=== PATIENT | female | born 1995 | race Caucasian/White ===

== ENCOUNTER 2019-11-26 14:19 | Emergency (ER) | payer MEDICAID ==
[~2019-11-26] VITALS: Ht 160 cm; Wt 61.8 kg
[~2019-11-26 14:19] MED LIST: BACTROBAN 22GM22 GM NAS; CEPHALEXIN500 M1 PO; DOXYCYCLINE 10100 MG PO; MOTRIN 200200 MG/TAB PO; NO HOME MEDICATIONS; NORCO 325 MG-51 TAB PO; PERCOCET 325 MG1 TA2 PO; PHENERGAN 25 TA25 MG PO; SEPTRA DS 8001 TAB PO; TYLENOL 500MG500 MG PO; ZOVIRAX400 MG PO
[2019-11-26 14:24] VITALS: BP 106/71; PULSE 79; TEMP 98.5
[2019-11-26 16:12] LABS: BASO % 0.3 % (0.0-2.0); EOS # 0.1 (0.0-0.7); EOS % 0.8 % (0-4.0); GRAN # 5.8 (1.4-6.5); GRAN % 66.9 % (42.2-75.2); HEMOGLOBIN 10.5 g/dl (12.5-16.0); LYMPH # 2.1 (1.2-3.4); LYMPH % 23.5 % (20.0-51.0); MEAN CELL VOLUME 94 fl (80.0-100.0); MEAN CORPUSCULAR HEMOGLOBIN 31 pg (27.0-31.0); MEAN CORPUSCULAR HGB CONC 33 g/dl (33.0-37.0); MEAN PLATELET VOLUME 9.3 fl (7.4-10.4); MONO # 0.7 (0.1-0.6); MONO % 7.6 % (1.7-9.3); PLATELET COUNT 274 K/mm3 (130-400); RED BLOOD COUNT 3.38 M/mm3 (4.10-5.30); REDCELL DISTRIBUTION WIDTH-CV 14.4 % (11.5-14.5)
[2019-11-26 16:13] LABS: HEMATOCRIT 31.7 % (37.0-47.0)
[2019-11-26 16:34] LABS: ALBUMIN 3.4 gm/dL (3.5-5.0); BILIRUBIN,TOTAL 0.3 mg/dL (0.0-1.0); CALCIUM 8.7 mg/dL (8.4-10.2); CREATININE, serum 0.55 (0.52-1.25); POTASSIUM 3.8 mmol/L (3.4-5.0); TOTAL PROTEIN 6.8 gm/dL (6.4-8.2)
== END 2019-11-26 17:17 | disposition left against medical advice (07) ==
LOC: COL.ER 14:19
PROVIDERS: Nurse Practitioner Primary Care
DX: R10.2 Pelvic and perineal pain (principal)

== ENCOUNTER 2020-03-11 14:00 | Outpatient (CLI) | payer MEDICAID ==
[~2020-03-11] VITALS: Ht 160 cm; Wt 71.4 kg
[2020-03-11 13:45] VITALS: BP 117/76; PULSE 90; TEMP 97.8
--- NOTE | 2020-03-11 13:50 | NUR ---
PATIENT HERE TO LR 3 FOR CHECK. PATIENT CHANGED INTO GOWN, ON EFM, ASSESMENT COMPLETE, PATIENT COMPLAINS OF CONTRACTIONS SINCE 1130 AM. PATIENT DENIES LEAKING OF FLUID, AND BLEEEDING. SVE /3. DR HINSON CALLED. WATER PROVIDED TO PATIENT. MOTHER WITH PATIENT
[2020-03-11] MEDS ORDERED: PROZAC 20MG20 MG PO (14:06)
[2020-03-11 14:30] VITALS: BP 117/76; PULSE 86
[2020-03-11 14:56] LABS: TRICYCLIC ANTIDEPRESS URINE NEGATIVE
[2020-03-11 15:00] VITALS: BP 112/69; PULSE 81
[2020-03-11 15:30] VITALS: BP 108/73; PULSE 80
[2020-03-11 16:00] VITALS: BP 103/64; PULSE 79
== END 2020-03-11 16:05 | disposition home or self-care (01) ==
LOC: LDRO 14:00
PROVIDERS: Obstetrics & Gynecology
DX: O62.9 Abnormality of forces of labor, unspecified (principal); Z3A.35 35 weeks gestation of pregnancy
CPT/HCPCS: J2405; J7120

== ENCOUNTER 2020-03-12 13:33 | Outpatient (CLI) | payer MEDICAID ==
[~2020-03-12] VITALS: Ht 160 cm; Wt 71.4 kg
[2020-03-12 12:24] VITALS: BP 114/61; PULSE 87; TEMP 97.5
[~2020-03-12 13:33] MED LIST changes: +PROZAC 20MG20 MG PO
--- NOTE | 2020-03-12 13:40 | NUR ---
JODY /-3PATIENT HERE WITH COMPLAINTS OF CONTRACTIONS. PATIENT DENIES LEAKING OF FLUID OR BLEEDING. PATIENT STATES SHE STAYED IN A HOTEL LAST NIGHT TO MAKE SURE SHE WAS NOT IN LABOR SINCE HER HOUSE IS OVER AN HOUR AWAY. PATIENT HAS TRIED BENADRYL, TYLENOL, WARM BATH. PATIENTS BOYFRIEND PRESENT. PATIENT ON EFM. VITALS OBTAINED. ASSESMENT COMPLETE
[2020-03-12 14:00] VITALS: BP 114/61; PULSE 87; TEMP 97.5
[2020-03-12 14:30] VITALS: BP 109/70; PULSE 80
[2020-03-12 14:50] VITALS: BP 107/63; PULSE 76
== END 2020-03-12 14:55 | disposition home or self-care (01) ==
LOC: LDRO 13:33 → LDR 13:52 → LDRO 14:55
DX: O62.9 Abnormality of forces of labor, unspecified (principal); Z3A.35 35 weeks gestation of pregnancy
CPT/HCPCS: OP

== ENCOUNTER 2020-04-01 10:04 | Inpatient (IN) | payer MEDICAID ==
[~2020-04-01] VITALS: Ht 160 cm; Wt 73.6 kg
[2020-04-01] VITALS (34 sets, daily range): BP systolic 88–126; BP diastolic 50–81; PULSE 73–93; TEMP 98–98.7
--- NOTE | 2020-04-01 12:35 | NUR ---
Patient arrives ambulatory with spouse for scheduled induction of labor. Patient denies contractions, ROM or vaginal bleeding. Reports normal movement. Patient changes into gown, EFM explained and placed. VSS. Reviewed plan of care for Pitocin induction, patient agrees and denies questions. CC UA obtained per history of drug use, patient notified that UDS being sent per protocol and agrees. 1245- IV started in LFA, labs obtained and LR infusing per protocol. Assessment completed. Consents explained and signed. Patient denies questions. Dr. Hernandez on unit, reviews FHR strip and contraction pattern. Orders to being Pitocin induction. 1305- Pitocin administration reviewed, patient denies questions and agrees. Pitocin started at 2 mU per protocol and order.
[2020-04-01 13:24] LABS: BASO % 0.3 % (0.0-2.0); EOS # 0.1 (0.0-0.7); EOS % 0.8 % (0-4.0); GRAN # 7.4 (1.4-6.5); GRAN % 66.2 % (42.2-75.2); HEMATOCRIT 33.2 % (37.0-47.0); HEMOGLOBIN 11.1 g/dl (12.5-16.0); LYMPH # 2.5 (1.2-3.4); LYMPH % 22.4 % (20.0-51.0); MEAN CELL VOLUME 92 fl (80.0-100.0); MEAN CORPUSCULAR HEMOGLOBIN 31 pg (27.0-31.0); MEAN CORPUSCULAR HGB CONC 33 g/dl (33.0-37.0); MONO % 8.9 % (1.7-9.3); PLATELET COUNT 343 K/mm3 (130-400); REDCELL DISTRIBUTION WIDTH-CV 13.2 % (11.5-14.5)
--- NOTE | 2020-04-01 13:32 | NUR ---
Patient consents to COVID19 test per protocol. Swab collected by Lynette Garcia RN and sent to lab.
[2020-04-01 13:38] LABS: TRICYCLIC ANTIDEPRESS URINE NEGATIVE
--- NOTE | 2020-04-01 16:55 | NUR ---
Patient encouraged to stand at bedside or get on birthing ball. Patient assisted to stand at bedside.
--- NOTE | 2020-04-01 20:20 | NUR ---
Dr Hernandez into room reviews plan of care,invites aand answers questions. SVE with AROM, clear fluid.
--- NOTE | 2020-04-01 21:50 | NUR ---
Jose E FREEZER TUNNEL OPERATOR into room for epidural placement. Pt moves to sit at edge of bed. see anesthesia record.
--- NOTE | 2020-04-01 22:15 | NUR ---
Epidural placement complete. Pt to L wedge.
[2020-04-02] VITALS (10 sets, daily range): BP systolic 99–1107; BP diastolic 52–76; PULSE 71–96; TEMP 97.7–98.2
--- NOTE | 2020-04-02 00:45 | NUR ---
Difficulty maintaining FHR tracing, to bedside.SVE as noted. 0047 Dr Hernandez called to come for delivery, NSY notified. 0102 Dr Hernandez into room, pt prepped for delivery. 0111 female , through nuchal chord x1, by Dr Hernandez.
--- NOTE | 2020-04-02 01:15 | NUR ---
Placenta delivers sppont and intact. Pitocin gtt to bolus rate. 0118 Fundal massage for increased flow, small clot expressed, lochia decreases. Perineal repair continues. 0130 Perineal repair complete, fundal massge expresses several small clots and one golfball sized clot. Pericare completed, ice pack to perineum, bed back together.
--- NOTE | 2020-04-02 02:30 | NUR ---
BP cuff on floor. Pt states "it was bugging me, so I took it off"
--- NOTE | 2020-04-02 04:00 | NUR ---
IV to INT, up to bathroom with steady gait. Voids large amount, performs own pericare. clean gown on. Ambulates to room.
[2020-04-02] MEDS ORDERED: MOTRIN 800800 MG/TAB PO (06:29)
--- NOTE | 2020-04-02 09:46 | NUR ---
Initial visit; Parents thanked Manager Office for offering congratulations for the of their daughter. Manager Office offered God's blessings and thanked family for choosing [facility].
--- NOTE | 2020-04-02 10:04 | NUR ---
Family Therapist consulted for the patient. The patient tested negative during and negative at admission for drug use. The patient's nurse has no concerns about the patient returning home with the baby and the FOB, Los Holden. JOSÉ met with the patient and Los. Their new address is [address] [place] [id number]. The patient had a child at age [age] years old. That child is 11 years old now and the patient's mother, Jeri has custody. The patient reports she sees child and has a good relationship with him. The patient has all the supplies she needs. The patient has all the baby supplies she needs. She is signed up for WIC and has reached out to [employer] to sign up for their diapers and wipes program. The patient's grandmother and mother provide additional support. SW addressed the patient's history of drug use. The patient states that she no longer lives that life. She went to [facility] in [place] for treatment. She currently goes to [place] for continued support. The patient also receives treatment for depression and anxiety. SW understood her supports if she feeling like using again. She also understood where to go if she needs mental health support. The patient does not have a PCP. Physician list provided. [facility] resource guide was provided. JOSÉ collaborated the above information with the patient's nurse.
[2020-04-03 08:10] LABS: HEMATOCRIT 29.3 % (37.0-47.0); HEMOGLOBIN 9.7 g/dl (12.5-16.0)
[2020-04-03 08:23] VITALS: BP 106/75; PULSE 77; TEMP 97.7
--- NOTE | 2020-04-03 08:45 | NUR ---
0823- MOTHER AMBULATED OFF UNIT TO GO ON A AWALK
--- NOTE | 2020-04-03 10:04 | NUR ---
JOSÉ update: Sw consulted on notation for baby to go home. Please refer to Social Service note for baby complete. No concerns have been identifed for this child and parents. Baby is reported to be safe going home with follow-up with PCP for baby. No CPS reports were made per notes. Client was given resource information. -Nothing Follows.
--- NOTE | 2020-04-03 11:00 | NUR ---
PATIENT AMBULATED TO EMERGENGY ROOM ENTERANCE. TO NURSERY
== END 2020-04-03 12:35 | disposition home or self-care (01) | DRG 806 ==
LOC: OB 10:04 → LDR 12:31 → OB 12:31
PROVIDERS: ADMIT Obstetrics & Gynecology
PROC: 10E0XZZ Delivery of Products of Conception, External Approach (ICD-10-PCS; principal; 2020-04-02)
PROC: 0KQM0ZZ Repair Perineum Muscle, Open Approach (ICD-10-PCS; 2020-04-02)
DX: O99.62 Diseases of the digestive system complicating childbirth (principal); O98.42 Viral hepatitis complicating childbirth; Z37.0 Single live birth; O70.1 Second degree perineal laceration during delivery; B19.20 Unspecified viral hepatitis C without hepatic coma; Z3A.38 38 weeks gestation of pregnancy
CPT/HCPCS: J2590; J2795; J7120

== ENCOUNTER 2021-06-22 21:28 | Emergency (ER) | payer MEDICAID ==
[~2021-06-22] VITALS: Ht 160 cm; Wt 54.5 kg
[~2021-06-22 21:28] MED LIST changes: +MOTRIN 800800 MG/TAB PO
[2021-06-22 21:49] VITALS: BP 139/58; PULSE 118; TEMP 98.1
== END 2021-06-22 22:34 | disposition left against medical advice (07) ==
LOC: COL.ER 21:28
DX: U07.1 COVID-19 (principal); R53.81 Other malaise